=== PATIENT | male | born 1965 | race Caucasian/White ===

== ENCOUNTER 2017-10-01 17:45 | Emergency (ER) | payer OTHER ==
[~2017-10-01] VITALS: Ht 177.8 cm; Wt 88.4 kg
[2017-10-01] MEDS ORDERED: TORADOL10 MG PO (20:59)
[2017-10-01] MEDS ORDERED: REGLAN10 MG PO (20:59)
[2017-10-01 21:19] VITALS: BP 158/99
== END 2017-10-01 21:19 | disposition home or self-care (01) ==
LOC: EME 17:45
DX: S09.90XA Unspecified injury of head, initial encounter (principal); W19.XXXA Unspecified fall, initial encounter; K21.9 Gastro-esophageal reflux disease without esophagitis; F17.200 Nicotine dependence, unspecified, uncomplicated
CPT/HCPCS: 70450; 99281; 99284